=== PATIENT | male | born 2005 | race Two or more races ===

== ENCOUNTER 2025-04-29 01:43 | Emergency (ER) | payer OTHER ==
[~2025-04-29] VITALS: Ht 180.3 cm; Wt 72.6 kg
[2025-04-29] MEDS ORDERED: 0.9 % SODIUM CHLORIDE 500 ML IV STA (04:49)
[2025-04-29] MEDS ORDERED: METOCLOPRAMIDE HCL 5 MG/ML VIAL IM STA (04:50)
[2025-04-29] MEDS ORDERED: KETOROLAC TROMETHAMINE 30 MG VIAL IV STA (04:51)
[2025-04-29] MEDS ORDERED: FAMOtidine 10 MG/ML (4ML VIAL) IV PUSH STA (04:51)
[2025-04-29] MEDS ORDERED: HYOSCYAMINE SULFATE 0.125 MG TAB.SUBL SL ONE (05:00)
[2025-04-29] MEDS ORDERED: HYOSCYAMINE SULFATE 0.125 MG TAB.SUBL ONE (05:03)
[2025-04-29] MEDS ORDERED: KETOROLAC TROMETHAMINE 30 MG VIAL ONE (05:03)
[2025-04-29] MEDS ORDERED: METOCLOPRAMIDE HCL 5 MG/ML VIAL ONE (05:04)
[2025-04-29] MEDS ORDERED: FAMOTIDINE/PF 20 MG/2 ML VIAL ONE (05:04)
[2025-04-29 06:45] LABS: BASO % 0.3 % (0.1-1.2); HEMATOCRIT 46.9 % (40.1-51.0); LYMPH # 1.09 (1.18-3.74); LYMPH % 9.7 % (19.3-53.1); MONO # 0.63 (0.24-0.82); MONO % 5.6 % (4.7-12.5); NEUT # 9.45 (1.56-6.13); PLATELET COUNT 245 K/uL (163-369); RED BLOOD COUNT 5.35 M/uL (4.63-6.08); RED CELL DISTRIBUTION WIDTH 12.5 % (11.6-14.4)
[2025-04-29 06:54] LABS: ALBUMIN 4.6 gm/dL (3.4-5.0); BILIRUBIN TOTAL 0.56 mg/dL (0.3-1.2); CALCIUM 9.8 mg/dL (8.5-10.1); CREATININE SERUM 1.09 mg/dL (0.70-1.30); GFR 84.59; POTASSIUM 4.04 mEq/L (3.5-5.1); TOTAL PROTEIN 8.6 gm/dL (6.4-8.2)
== END 2025-04-29 12:32 | disposition home or self-care (01) ==
LOC: ER 01:43
DX: K29.70 Gastritis, unspecified, without bleeding (principal)